=== PATIENT | female | born 1980 | race Hispanic/Latino ===

== ENCOUNTER 2025-02-05 22:34 | Emergency (ER) | payer SELFPAY ==
[2025-02-05 22:37] VITALS: BP 179/103
[2025-02-05 23:00] LABS: % Basophils 0.5 % (0-2); % Eosinophils 1.1 % (0-6); % Immature Granulocytes 0.3 % (0-0.5); % Lymphocytes 44.3 % (20.5-51.1); % Monocytes 7.5 % (1.7-9.3); % Neutrophils 46.3 % (42.2-75.2); Absolute Basophils 0.1 10^3/uL (0-0.2); Absolute Eosinophils 0.1 10^3/uL (0-0.7); Absolute Lymphocytes 4.9 10^3/uL (1.2-3.4); Absolute Monocytes 0.8 10^3/uL (0.1-0.6); Absolute Neutrophils 5.1 10^3/uL (1.4-6.5); Hematocrit 42.8 % (37.0-47.0); Hemoglobin 14.3 g/dL (12.0-16.0); Mean Corp Hgb Conc. 33.4 g/dL (33.0-37.0); Mean Corpuscular Hgb 28.3 pg (27.0-31.0); Mean Corpuscular Volume 84.6 fL (81.0-99.0); Mean Platelet Volume 11.1 fL (7.4-10.4); Nucleated Red Blood Cells % 0 %; Platelet Count 265 10^3/uL (130-400); Red Blood Cell Count 5.06 10^6/uL (4.20-5.40); Red Cell Dist. Width 13.5 % (11.5-14.5); Urine Albumin Negative (Neg - Trace); Urine Bilirubin Negative (Negative); Urine Character Clear (Clear); Urine Color Yellow; Urine Glucose Negative (Negative); Urine Ketone Negative (Negative); Urine Leukocyte Negative (Negative); Urine Nitrite Negative (Negative); Urine Occult Blood 2+ (Negative); Urine Specific Gravity 1.015 (<1.030); Urine Urobilinogen Negative (Neg - 1+)
[2025-02-05 23:09] LABS: Urine Bacteria Moderate (Negative); Urine Red Blood Cell 0-2 /HPF (0-2); Urine Squamous Cell 16-20 /LPF (Few); Urine White Cell 0-2 /HPF (0-5)
[2025-02-05 23:14] LABS: HCG, Serum Qualitative Screen Negative
[2025-02-05 23:15] LABS: Lactic Acid 0.9 mmol/L (0.7-2.0)
[2025-02-05 23:18] LABS: ALT (SGPT) 45 U/L (0-35); AST (SGOT) 36 U/L (14-36); Albumin 4.7 g/dl (3.5-5.0); Alkaline Phosphatase 88 U/L (38-126); Blood Urea Nitrogen 21 mg/dl (7-17); Calcium 9.6 mg/dl (8.4-10.2); Carbon Dioxide 26 mmol/L (22-30); Chloride 107 mmol/L (98-107); Glucose 112 mg/dl (70-99); Lipase 204 U/L (23-300); Potassium 4.4 mmol/L (3.5-5.1); Sodium 142 mmol/L (135-145); Total Bilirubin 0.4 mg/dl (0.2-1.3); Total Protein 9.1 g/dl (6.3-8.2); eGFR > 60.00
[2025-02-06 02:00] VITALS: BP 166/80
[2025-02-06 04:12] VITALS: BP 145/91
[2025-02-06] MEDS: TORADOL 15 MG IV (04:18)
[2025-02-06 05:00] VITALS: BP 123/78
--- NOTE | 2025-02-06 05:18 | ED.GENMED ---
History of Present Illness
General
Chief Complaint: Abdominal Pain
Source: patient
Exam Limitations: none
Time Seen by Provider: 02/06/25 03:59
Nursing documentation reviewed up to this point in time: agreed with
History of Present Illness
History of Present Illness:
24-year-old female presenting to the emergency department today with concerns of right lower quadrant abdominal pain over the past week or so worsening this morning. Denies any fevers does have nausea no vomiting no changes in bowel movements.
Review of Systems
Review of Systems
Allergies reviewed?: Yes
All Other Systems: ROS reviewed and negative except as documented in HPI and ROS
Phy Exam
Physical Exam
Physical Exam:
GENERAL: Alert , in no apparent distress
EYE: pupils equal and reactive
NECK: Supple, no significant adenopathy.
ENT: o/p clr, mmm.
CARDIAC: Regular rate and rhythm .
LUNGS: Clear breath sounds bilaterally, no acute respiratory distress, no wheezes/rales/rhonchi
ABDOMEN: Right lower quadrant pain otherwise soft abdomen
NEUROLOGICAL: Alert and oriented, no focal neuro deficits
SKIN: Warm and dry, skin intact.
MUSCULOSKELETAL: No edema, well perfused.
PSYCH: Normal and appropriate interaction.
Course
Orders/Labs/Results
Orders:
Orders
02/05/25 22:41
Test Result ONCE
02/05/25 22:46
Complete Blood Count/With Diff Urgent
Comprehensive Metabolic Panel Urgent
HCG, Serum Qualitative Screen Urgent
Lactic Acid Urgent
Lipase Urgent
Urine Culture Reflexed from UA [Urinalysis Reflex To Culture] Urgent
Date Specimen was Collected: 02/05/25
Time Specimen was Collected: 22:41
Urine Microscopic Reflex Cult Urgent
Urine Culture Urgent
CORNELIA Source: U
Specimen Description:
Date Specimen was Collected: 02/05/25
Time Specimen was Collected: 22:41
02/06/25 04:07
CT Abd/Pel (IV only)-DH only Urgent
Comment:
Reason For Exam: rlq pain
Ketorolac [Toradol] 15 mg IV NOW STA
Abnormal Lab Results
02/05/25
22:46
WBC 11.0 H 10^3/uL
(4.8-10.8)
MPV 11.1 H fL
(7.4-10.4)
Absolute Lymphs (auto) 4.9 H 10^3/uL
(1.2-3.4)
Absolute Monos (auto) 0.8 H 10^3/uL
(0.1-0.6)
BUN 21 H mg/dl
(7-17)
Glucose 112 H mg/dl
(70-99)
ALT 45 H U/L
(0-35)
Total Protein 9.1 H g/dl
(6.3-8.2)
Ur Occult Blood Reflex 2+ A
(Negative)
Urine Bacteria (Reflex) Moderate A
(Negative)
02/05/25 22:46
02/05/25 22:46
Vital Signs
Initial and Last Documented VS:
Initial Vital Signs
Temp Pulse Resp BP Pulse Ox
97.9 F 81 20 179/103 99
02/05/25 22:37 02/05/25 22:37 02/05/25 22:37 02/05/25 22:37 02/05/25 22:37
Last Documented Vital Signs
Temp Pulse Resp BP Pulse Ox
97.9 F 84 22 107/68 96
02/05/25 22:37 02/06/25 02:00 02/06/25 02:00 02/06/25 06:00 02/06/25 06:00
MDM/Problems Addressed
MDM/Problems Addressed:
44-year-old female presenting to the emergency department today with concerns of right lower quadrant pain associated nausea for the past week worsening today slight white count of 11. Blood pressure elevated otherwise vital signs are normal.
Remainder of labs unremarkable. Plan for CT scan for further assessment of possible appendicitis. CT scan without emergent findings patient no distress when reassessed stable for close outpatient follow-up. Return precautions given.
*Critical Care Note
Total Time (30-74mins, 75-104mins- exclusive of procedures): Not Applicable
ED Attending Note
-
Portions of this chart may have been created with voice recognition software.� Occasional wrong word or��sound alike� substitutions may have occurred due to the inherent limitations of voice recognition software.
Discharge Plan
Departure
Patient Disposition: Home (Routine Discharge)
Date of Disposition: 02/06/25
Time of Disposition: 06:31
Patient with high blood pressure during this ER visit?: No
Condition: Good
Covid-19: Not Applicable
Discharge Problem:
Abdominal pain
Instructions: Abdominal Pain
Referrals:
NONE,* [Family Provider] -
Activity Restrictions/Additional Instructions:
You came to the emergency department today with concerns of lower abdominal pain. Here you had a CT scan which was normal and labs which were normal. Return for any worsening, new or concerning symptoms.
Interventions
Interventions:
*General Assessment Last Done: 02/05/25 22:37
MW-Djutsc-Kgyrhnhtzf Assessment Last Done: 02/06/25 04:13
Discharge Date and Time
Print Language: INDONESIAN
[2025-02-06 06:00] VITALS: BP 107/68
== END 2025-02-06 06:43 | disposition home or self-care (01) ==
LOC: EMR 22:34
PROVIDERS: Student in an Organized Health Care Education/Training Program; EMERGENCY PHYSICIAN Emergency Medicine
DX: R10.31 Right lower quadrant pain (principal)
CPT/HCPCS: 99284; 96374; 74177; 80053; 81003; 81015; 83605; 83690; 84703; 85025; 87077; 87086; Q9967